=== PATIENT | male | born 1975 | race Caucasian/White ===

== ENCOUNTER 2017-02-09 22:22 | Emergency (ER) | payer MEDICAID ==
[~2017-02-09] VITALS: Ht 177.8 cm; Wt 104.3 kg
[~2017-02-09 22:22] MED LIST: IBUP-23 PO
[2017-02-10] MEDS ORDERED: FLUORESCEIN SODIUM 1 MG STRIP OP ONE (01:00)
[2017-02-10] MEDS ORDERED: TETRACAINE HCL 0.5% OPHT DROP 2 ML BOTTLE OP ONE (01:00)
[2017-02-10] MEDS ORDERED: TETRACAINE HCL 0.5% OPHT DROP 2 ML BOTTLE ONE (01:08)
[2017-02-10] MEDS ORDERED: FLUORESCEIN SODIUM 1 MG STRIP ONE (01:08)
--- NOTE | 2017-02-10 01:27 | NUR ---
Patient discharged to home in stable conditon. Written and verbal after care instructions given. Patient verbalizes understanding of instructions.
== END 2017-02-10 01:27 | disposition home or self-care (01) ==
LOC: ER 22:22
DX: H10.9 Unspecified conjunctivitis (principal)
CPT/HCPCS: 99283; A4663

== ENCOUNTER 2018-07-10 19:42 | Emergency (ER) | payer MEDICAID ==
[~2018-07-10] VITALS: Ht 177.8 cm; Wt 86.2 kg
[2018-07-10 20:11] VITALS: BP 110/74
--- NOTE | 2018-07-10 20:11 | NUR ---
Patient discharged to home in stable conditon. Written and verbal after care instructions given. Patient verbalizes understanding of instructions. Patient ambulated out of ER with stable gait.
== END 2018-07-10 20:12 | disposition home or self-care (01) ==
LOC: ER 19:45
DX: H00.011 Hordeolum externum right upper eyelid (principal); Z79.1 Long term (current) use of non-steroidal anti-inflammatories (NSAID)
CPT/HCPCS: A4663

== ENCOUNTER 2019-02-15 16:52 | Emergency (ER) | payer MEDICAID ==
[~2019-02-15] VITALS: Ht 188 cm; Wt 81.6 kg
[2019-02-15] MEDS ORDERED: methylPREDNISolone SOD SUCC 125 MG/2 ML VIAL IV ONE (17:45)
[2019-02-15] MEDS ORDERED: FAMOTIDINE 20 MG TABLET PO ONE (17:45)
[2019-02-15] MEDS ORDERED: EPINEPHRINE 1 MG/1 ML AMP SQ ONE (17:45)
[2019-02-15] MEDS ORDERED: diphenhydrAMINE 50 MG/1 ML VIAL IV ONE (17:45)
[2019-02-15] MEDS ORDERED: methylPREDNISolone SOD SUCC 125 MG/2 ML VIAL ONE (18:00)
[2019-02-15] MEDS ORDERED: diphenhydrAMINE 50 MG/1 ML VIAL ONE (18:00)
[2019-02-15] MEDS ORDERED: EPINEPHRINE 1 MG/1 ML AMP ONE (18:01)
[2019-02-15] MEDS ORDERED: FAMOTIDINE 20 MG TABLET ONE (18:01)
--- NOTE | 2019-02-15 21:47 | NUR ---
PT ASLEEP AT HIGH BELLE'S POSITION PT NAD AIRPORT DRIVER AT BEDSIDE R AC G20 INTACT SALINE LOCK SIDERAILSX2 UP, BED AT LOWEST POSITION
[2019-02-15 22:00] LABS: BASOPHILS % (AUTO) 0.4 % (0.0-2.0); EOSINOPHILS % (AUTO) 0.1 % (0.0-7.0); HEMATOCRIT 44.1 % (36.7-47.1); HEMOGLOBIN 14.9 g/dL (12.5-16.3); LYMPHOCYTES # (AUTO) 0.7 K/uL (20.0-40.0); LYMPHOCYTES % (AUTO) 10.6 % (20.5-51.5); MEAN CORPUSCULAR HEMOGLOBIN 27.4 uug (23.8-33.4); MEAN CORPUSCULAR HGB CONC 34 g/dL (32.5-36.3); MEAN CORPUSCULAR VOLUME 81.2 fL (73.0-96.2); MONOCYTES # (AUTO) 0.2 K/uL (2.0-10.0); MONOCYTES % (AUTO) 2.4 % (0.0-11.0); NEUTROPHILS # (AUTO) 5.5 K/uL (1.8-8.9); NEUTROPHILS % (AUTO) 86.5 % (38.5-71.5); PLATELET COUNT (AUTO) 202 K/uL (152-348); RED BLOOD CELL COUNT(AUTO) 5.43 MIL/uL (4.06-5.63); WHITE BLOOD COUNT (AUTO) 6.3 K/uL (3.6-10.2)
[2019-02-15 22:10] LABS: CREATININE 0.8 mg/dL (0.6-1.3); POTASSIUM 3.7 mmol/L (3.5-5.1)
[2019-02-15 22:16] LABS: BILIRUBIN,DIRECT 0.2 mg/dL (0.0-0.2); TOTAL PROTEIN, SERUM 8.1 g/dL (6.4-8.2)
--- NOTE | 2019-02-16 00:31 | NUR ---
DC IV SALINE LOCK FROM R AC. DRESSED Patient discharged to home in stable conditon. Written and verbal after care instructions given. Patient verbalizes understanding of instructions. AMBULATORY W/ STABLE GAIT ALL BELONGINGS W/ PT
[2019-02-16 00:36] VITALS: BP 115/70
== END 2019-02-16 00:25 | disposition home or self-care (01) ==
LOC: ER 16:56
DX: B99.8 Other infectious disease (principal); Z79.1 Long term (current) use of non-steroidal anti-inflammatories (NSAID)
CPT/HCPCS: 36415; 80048; 80076; 83605; 84484; 85025; 87040 ×2; 96372; 96374; 96375; 99283; J0171; J1200; J2930; 70030-TC; A4663

== ENCOUNTER 2020-03-30 17:02 | Emergency (ER) | payer MEDICAID ==
[~2020-03-30] VITALS: Ht 185.4 cm; Wt 95.3 kg
[2020-03-30] MEDS ORDERED: ACETAMINOPHEN 325 MG TABLET PO ONE (18:00)
--- NOTE | 2020-03-30 18:24 | NUR ---
PT IS IN ROOM #2B. DR JEROME EVALUATED THE PT.
[2020-03-30] MEDS ORDERED: ACETAMINOPHEN 325 MG TABLET ONE (18:29)
--- NOTE | 2020-03-30 18:41 | NUR ---
PT WAS D/C'd TO HOME. D/C INSTRUCTIONS GIVEN TO THE PT BY DR JEROME.
[2020-03-30 18:43] VITALS: BP 143/73
== END 2020-03-30 18:49 | disposition home or self-care (01) ==
LOC: ER 17:05
DX: M25.561 Pain in right knee (principal); M25.461 Effusion, right knee
CPT/HCPCS: A4663

== ENCOUNTER 2021-09-26 11:00 | Emergency (ER) | payer MEDICAID ==
[~2021-09-26] VITALS: Ht 188 cm; Wt 86.2 kg
--- NOTE | 2021-09-26 11:30 | NUR ---
PT SEEN AND EVALUATED BY DR OREILLY.
[2021-09-26] MEDS ORDERED: DOXY-326 PO (11:54)
--- NOTE | 2021-09-26 12:04 | NUR ---
Patient discharged to home in stable condition, +brisk steady gait. Written and verbal after care instructions given. Patient verbalized understanding and compliance of instructions. Stressed follow up with primary doctor or return to ER for worsening s/s.
== END 2021-09-26 12:04 | disposition home or self-care (01) ==
LOC: ER 11:02
DX: L73.9 Follicular disorder, unspecified (principal)
CPT/HCPCS: A4663

== ENCOUNTER 2023-05-05 10:54 | Emergency (ER) | payer MEDICAID ==
[~2023-05-05] VITALS: Ht 188 cm; Wt 86.2 kg
[~2023-05-05 10:54] MED LIST changes: +DOXY-326 PO
[2023-05-05 11:18] VITALS: O2SAT 97
[2023-05-05] MEDS ORDERED: GENT5DRO4 LEFTEYE (11:46)
[2023-05-05] MEDS ORDERED: CEPH500C2 PO (11:46)
== END 2023-05-05 12:03 | disposition home or self-care (01) ==
LOC: ER 10:54
DX: H00.011 Hordeolum externum right upper eyelid (principal); Z79.2 Long term (current) use of antibiotics; Z79.899 Other long term (current) drug therapy
CPT/HCPCS: A4606; A4663